=== PATIENT | female | born 1965 | race Caucasian/White ===

== ENCOUNTER 2022-01-20 04:07 | Day surgery (SDC) | payer OTHER ==
[2022-01-18 14:52] VITALS: BMI 18.8
[2022-01-20 10:03] VITALS: BP 98/54; PULSE 105; RESP 22; TEMP 98
== END 2022-01-20 10:03 | disposition home or self-care (01) ==
LOC: JASU-ENDO 04:07
PROVIDERS: ATTEND Internal Medicine Gastroenterology
PROC: 0DBP8ZX Excision of Rectum, Via Natural or Artificial Opening Endoscopic, Diagnostic (ICD-10-PCS; principal; 2022-01-20 08:45)
DX: Z12.11 Encounter for screening for malignant neoplasm of colon (principal); D12.8 Benign neoplasm of rectum; K57.30 Diverticulosis of large intestine without perforation or abscess without bleeding; Z86.010 Personal history of colon polyps; Z80.0 Family history of malignant neoplasm of digestive organs; I10 Essential (primary) hypertension
CPT/HCPCS: 88305-TC

== ENCOUNTER → 2023-01-31 | Day surgery (SDC) | payer OTHER | END | disposition home or self-care (01) | LOC: FMAMMOTONE 08:10 | PROVIDERS: ATTEND Obstetrics & Gynecology | PROC: 0HBU3ZX Excision of Left Breast, Percutaneous Approach, Diagnostic (ICD-10-PCS; principal; 2023-01-31) | DX: N60.32 Fibrosclerosis of left breast (principal); N64.89 Other specified disorders of breast; R92.0 Mammographic microcalcification found on diagnostic imaging of breast | CPT/HCPCS: 19081; 76098-TC-FY; 87899; 88305-TC; A4648 ==